=== PATIENT | female | born 1970 | race Caucasian/White ===

== ENCOUNTER 2023-08-20 12:06 | Emergency (ER) | payer SELFPAY ==
[2023-08-20 12:09] VITALS: BP 137/91
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
[2023-08-20] MEDS: LIDOCAINE 4% PATCH 1 PATCH TOPICAL (14:00)
[2023-08-20] MEDS: LIORESAL 10 MG PO (14:00)
== END 2023-08-20 15:21 | disposition home or self-care (01) ==
LOC: EMR 12:06
PROVIDERS: EMERGENCY PHYSICIAN Emergency Medicine; FAMILY PHYSICIAN Nurse Practitioner Acute Care
DX: M54.2 Cervicalgia (principal); M54.9 Dorsalgia, unspecified; V43.52XA Car driver injured in collision with other type car in traffic accident, initial encounter; Y92.410 Unspecified street and highway as the place of occurrence of the external cause
CPT/HCPCS: 99283; 72040

== ENCOUNTER 2023-08-26 09:55 | Emergency (ER) | payer SELFPAY ==
[2023-08-26 10:02] VITALS: BP 133/93
[2023-08-26] MEDS: TORADOL 15 MG IM (12:08)
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
[2023-08-26 15:11] VITALS: BP 118/72
[2023-08-26 16:40] VITALS: BP 123/82
[2023-08-26 16:41] VITALS: BP 123/82
== END 2023-08-26 16:42 | disposition home or self-care (01) ==
LOC: EMR 09:55
PROVIDERS: EMERGENCY PHYSICIAN Emergency Medicine
DX: M54.9 Dorsalgia, unspecified (principal); F41.9 Anxiety disorder, unspecified; F32.A Depression, unspecified; V89.2XXA Person injured in unspecified motor-vehicle accident, traffic, initial encounter
CPT/HCPCS: 99284; 96372; 72125; 72128; 93005

== ENCOUNTER 2024-11-05 10:58 | Emergency (ER) | payer SELFPAY ==
[2024-11-05 11:06] VITALS: BP 131/79
[2024-11-05 11:59] VITALS: BMI 17.4
--- NOTE | 2024-11-05 12:05 | ED.GENMED ---
History of Present Illness
General
Chief Complaint: Abdominal Pain
Source: patient
Exam Limitations: none
Time Seen by Provider: 11/05/24 11:45
Nursing documentation reviewed up to this point in time: agreed with
History of Present Illness
History of Present Illness:
Patient is a 50-year-old female past medical history anxiety , depression presents to the ER for epigastric and upper abdominal discomfort and burning for the past several weeks. She does report intermittent diarrhea stool is dark however she has
been taking Pepto-Bismol and Tums. She does not have a family doctor.
Was a cigarette smoker but quit smoking and now vapes nicotine. She does drink coffee every day but is try to cut down. She reports she is recently lost a lot of weight she is unable to exactly state how long this has occurred but used to be as
high as 120 pounds and reports now she is around 90 pounds.
She denies any fever chills chest pain shortness of breath.
Past History
Past History
ED Past Medical History: Psychiatric
ED Past Surgical History: and Orthopedic
Social History
Tobacco: Non-smoker
Alcohol: None
Drug: None
Personal:
Living: with family
Employment: Employed
Phy Exam
General Physical Exam
General Presentation: no apparent distress
General age: appears stated age
General Skin: warm and dry
General Habitus: normal
General Mental: alert
General Hydration: appears well hydrated
Cardiovascular Exam
Cardiovascular Exam: regular rate/rhythm, no murmur and normal peripheral pulses
Pulmonary Exam
Pulmonary Exam: lungs clear and no respiratory distress
Gastrointestinal Exam
Gastrointestinal Exam: soft and other (very minimal epigastric tenderness )
Neurological Exam
Neurological Exam: alert and oriented x3
Musculoskeletal Exam
Musculoskeletal Exam: full ROM
Skin Exam
Skin Exam: normal color and warm/dry
Psychiatric Exam
Psychiatric Exam: normal mood/affect
Course
Orders/Labs/Results
Orders:
Orders
11/05/24 12:11
Complete Blood Count/With Diff Urgent
Comprehensive Metabolic Panel Urgent
Lipase Urgent
11/05/24 12:17
US Abdomen Complete/Upper Urgent
Comment:
Reason For Exam: upper abd pain
11/05/24 12:18
Famotidine [Pepcid] 20 mg IV NOW STA
Mag Hydrox/Al Hydrox/Simeth [Maalox] 30 ml Phenobarb/Hyoscy/Atropine/Scop [] 10 ml PO NOW
11/05/24 12:39
Mag Hydrox/Al Hydrox/Simeth [Maalox] 30 ml .ROUTE .STK-MED ONE
Phenobarb/Hyoscy/Atropine/Scop [] 10 ml .ROUTE .STK-MED ONE
Abnormal Lab Results
11/05/24
12:11
Calcium 10.5 H mg/dl
(8.4-10.2)
AST 39 H U/L
(14-36)
Albumin 5.3 H g/dl
(3.5-5.0)
11/05/24 12:11
11/05/24 12:11
Vital Signs
Initial and Last Documented VS:
Initial Vital Signs
Temp Pulse Resp BP Pulse Ox
98.5 F 83 18 131/79 96
11/05/24 11:06 11/05/24 11:06 11/05/24 11:06 11/05/24 11:06 11/05/24 11:06
Last Documented Vital Signs
Temp Pulse Resp BP Pulse Ox
98.5 F 83 18 131/79 96
11/05/24 11:06 11/05/24 11:06 11/05/24 11:06 11/05/24 11:06 11/05/24 12:07
MDM/Problems Addressed
Differential Diagnosis Includes:
not limited to: GERD gastritis reflux peptic ulcer disease, biliary
MDM/Problems Addressed:
Symptoms are consistent with GERD, gastritis. Patient no acute distress. Patient's labs unremarkable no acute findings on ultrasound. She is feeling better after Pepcid and GI cocktail. She does not a family doctor and has not gone for routine
screening including colonoscopy. She has no insurance at this time will refer to family practice clinic. I did review however with patient that she will need to follow-up with GI and will need colonoscopy which is routine along with endoscopy to
further evaluate symptoms. 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 For patient's complaint here will start patient on Protonix however will again discharge with outpatient follow-up with family practice clinic I did
review the importance of close follow-up to ensure that she is getting routine preventative exams as she should and also to follow-up for her current symptoms. She is advised that not vape nicotine and not drink caffeine .
*Radiology
Radiology exam reviewed: radiology read reviewed
*Pulse Oximetry
SaO2: 96
Oxygen Mode of Delivery: Room air
Patient hypoxic: no
*Critical Care Note
Total Time (30-74mins, 75-104mins- exclusive of procedures): Not Applicable
ED Attending Note
-
Portions of this chart may have been created with voice recognition software.� Occasional wrong word or��sound alike� substitutions may have occurred due to the inherent limitations of voice recognition software.
Discharge Plan
Departure
Patient Disposition: Home (Routine Discharge)
Date of Disposition: 11/05/24
Time of Disposition: 15:02
Patient with high blood pressure during this ER visit?: Yes
Condition: Fair
Covid-19: Not Applicable
Discharge Problem:
Gastritis
Instructions: [place] Diet, Gastritis (DC), BLOOD PRESSURE
Prescriptions:
New
pantoprazole [Protonix] 40 mg tablet,delayed release (DR/EC)
40 mg PO DAILY Qty: 14 0RF
No Action
albuterol sulfate 90 mcg/actuation HFA aerosol inhaler
2 puff inhalation Q6H PRN (Reason: shortness of breath or wheezing) Qty: 6.7 0RF
baclofen 10 mg tablet
10 mg PO BID Qty: 15 0RF
lidocaine [Lidoderm] 5 % adhesive patch,medicated
1 patch topical DAILY Qty: 30 0RF
cyclobenzaprine 10 mg tablet
10 mg PO HS PRN (Reason: muscle spasm) Qty: 7 0RF
Referrals:
[facility] [Outside]
NONE,* [Family Provider, Internal Medicine]
Carina Deluca MD [Active, Gastroenterology]
Activity Restrictions/Additional Instructions:
As discussed bland diet, avoid vaping avoid caffeine. Please follow-up with family practice clinic in the next 2 days for reevaluation. You were given a prescription for Protonix start as directed daily for the next 2 weeks. It is importantly
follow-up with family practice clinic and GI. You will likely need your routine colonoscopy as well as endoscopy and other routine preventive imaging.
Return to the ER if any worsening of symptoms.
Interventions
Interventions:
*Risk Screen - Suicide Last Done: 11/05/24 11:06
*General Assessment Last Done: 11/05/24 11:06
*Neglect/Abuse Screening Last Done: 11/05/24 11:06
TM-Tvuyok-Ujautatxqn Assessment Last Done: 11/05/24 12:02
Discharge Date and Time
Print Language: UKRAINIAN
[2024-11-05 12:19] LABS: Hematocrit 39.3 % (37.0-47.0); Hemoglobin 13.5 g/dL (12.0-16.0); Mean Corp Hgb Conc. 34.4 g/dL (33.0-37.0); Mean Corpuscular Volume 89.7 fL (81.0-99.0); Nucleated Red Blood Cells % 0 %; Platelet Count 224 10^3/uL (130-400); Red Cell Dist. Width 12.8 % (11.5-14.5)
[2024-11-05] MEDS: MAALOX 40 PO (12:40)
[2024-11-05] MEDS: PEPCID 20 MG IV (12:40)
[2024-11-05 12:42] LABS: ALT (SGPT) 26 U/L (0-35); AST (SGOT) 39 U/L (14-36); Albumin 5.3 g/dl (3.5-5.0); Alkaline Phosphatase 57 U/L (38-126); Blood Urea Nitrogen 8 mg/dl (7-17); Calcium 10.5 mg/dl (8.4-10.2); Carbon Dioxide 29 mmol/L (22-30); Chloride 102 mmol/L (98-107); Estimated Creatinine Clearance 75 ml/min; Glucose 87 mg/dl (70-99); Lipase 88 U/L (23-300); Potassium 4.2 mmol/L (3.5-5.1); Sodium 137 mmol/L (135-145); Total Protein 7.9 g/dl (6.3-8.2); eGFR > 60.00
[2024-11-05 15:18] VITALS: BP 129/78
== END 2024-11-05 15:23 | disposition home or self-care (01) ==
LOC: EMR 10:58
PROVIDERS: Nurse Practitioner; EMERGENCY PHYSICIAN Emergency Medicine
DX: K29.70 Gastritis, unspecified, without bleeding (principal); R03.0 Elevated blood-pressure reading, without diagnosis of hypertension; F41.9 Anxiety disorder, unspecified; F32.A Depression, unspecified; F17.290 Nicotine dependence, other tobacco product, uncomplicated
CPT/HCPCS: 99284; 96374; 76700; 80053; 83690; 85025